=== PATIENT | female | born 1995 | race African-American/Black ===

== ENCOUNTER 2017-01-08 19:29 | Emergency (ER) | payer MEDICAID ==
[~2017-01-08] VITALS: Ht 165.1 cm; Wt 90.7 kg
[2017-01-08] MEDS ORDERED: LIDOCAINE HCL 1% 20ML VIAL (Pyxis) INJ MC ONE (22:30)
[2017-01-08] MEDS ORDERED: BACITRACIN ZINC OINT UDPKT TOP ONE (22:30)
[2017-01-08] MEDS ORDERED: IBUPROFEN 800MG TABLET PO ONE (22:30)
[2017-01-09 01:08] LABS: BASOPHILS % 0.3 % (0.0-2.0); HEMATOCRIT. 37.1 % (36.0-48.0); HEMOGLOBIN. 12.3 g/dL (12.0-16.0); LYMPHOCYTES % 7.5 % (20.0-50.0); MEAN CORPUSCULAR HGB CONC 33.2 g/dL (31.0-37.0); MEAN CORPUSCULAR VOLUME 90.2 fL (81.0-99.0); MEAN PLATELET VOLUME 7.8 fl (7.4-10.4); MONOCYTES % 3.1 % (2.0-8.0); NEUTROPHILS % 89.1 % (40.0-76.0); PLATELET 292 x1000/uL (130-400); RED BLOOD CELL COUNT 4.11 mill/uL (4.2-5.4); RED CELL DISTRIBUTION WIDTH 14.4 % (11.6-14.6); WHITE BLOOD COUNT 15.8 x1000/uL (4.5-11.0)
[2017-01-09 01:10] LABS: CHLORIDE 107 mEq/L (98-107); INDEX HEMOLYSI 2 (1-3); INDEX ICTERIC 1 (1-4); INDEX LIPEMIC 1 (1-3)
[2017-01-09 01:21] LABS: ANION GAP 12; CARBON DIOXIDE 25 mEq/L (21-32); UREA NITROGEN BLOOD 8 mg/dL (7-21); eGFR > 60 mL/min (>60)
[2017-01-09] MEDS ORDERED: IBUPROFEN 800MG TABLET PO ONE (02:15)
[2017-01-09 07:00] VITALS: BP 123/70
== END 2017-01-09 07:03 | disposition home or self-care (01) ==
LOC: ER 19:34
DX: S01.112A Laceration without foreign body of left eyelid and periocular area, initial encounter (principal); S09.90XA Unspecified injury of head, initial encounter; S80.211A Abrasion, right knee, initial encounter; V49.49XA Driver injured in collision with other motor vehicles in traffic accident, initial encounter; Y93.89 Activity, other specified; Y92.414 Local residential or business street as the place of occurrence of the external cause; Z88.0 Allergy status to penicillin; F17.210 Nicotine dependence, cigarettes, uncomplicated
CPT/HCPCS: 12015; 36415; 70450; 73560; 76856; 80048; 81025; 84702; 85025; 99285; J3490; Z7610

== ENCOUNTER 2017-01-11 09:23 | Emergency (ER) | payer MEDICAID ==
[~2017-01-11] VITALS: Ht 165.1 cm; Wt 91.0 kg
[2017-01-11 09:24] VITALS: BP 120/59
== END 2017-01-11 11:38 | disposition home or self-care (01) ==
LOC: ER 10:10
DX: S01.112D Laceration without foreign body of left eyelid and periocular area, subsequent encounter (principal); Z88.0 Allergy status to penicillin; F17.200 Nicotine dependence, unspecified, uncomplicated
CPT/HCPCS: 99281; Z7610

== ENCOUNTER 2020-02-05 21:22 | Emergency (ER) | payer MEDICAID ==
[~2020-02-05] VITALS: Ht 165.1 cm; Wt 94.0 kg
[2020-02-05 21:33] VITALS: BP 130/70
== END 2020-02-05 23:15 | disposition home or self-care (01) ==
LOC: ER 21:22
DX: T63.301A Toxic effect of unspecified spider venom, accidental (unintentional), initial encounter (principal); Y92.9 Unspecified place or not applicable; Z88.0 Allergy status to penicillin
CPT/HCPCS: 99282